=== PATIENT | male | born 1980 | race African-American/Black ===

== ENCOUNTER 2020-10-04 22:41 | Emergency (ER) | payer OTHER ==
[~2020-10-04] VITALS: Ht 172.7 cm; Wt 68.0 kg
[2020-10-04 22:41] VITALS: BP 151/96
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
[2020-10-05] MEDS ORDERED: BACITRACIN ZINC TOPICAL OINT PACKET. TP ONE (01:00)
== END 2020-10-05 00:52 | disposition home or self-care (01) ==
LOC: ER 22:41
DX: S00.83XA Contusion of other part of head, initial encounter (principal); V89.2XXA Person injured in unspecified motor-vehicle accident, traffic, initial encounter; Y93.89 Activity, other specified; Y92.89 Other specified places as the place of occurrence of the external cause; Y99.8 Other external cause status
CPT/HCPCS: 70450; 72125; 99285-25